=== PATIENT | female | born 1935 | race Caucasian/White ===

== ENCOUNTER 2019-01-10 01:40 | Observation (INO) ==
--- NOTE | 2019-01-10 02:36 | Emergency Department Note ---
Disposition Clinical Impression: Chest pain Qualifiers: Chest pain type: unspecified Qualified Code(s): R07.9 - Chest pain, unspecified Disposition: Admitted As Inpatient Condition: Good Referrals: Chad Torres MD [Primary Care Provider] - Forms: ED Satisfaction Letter, Work/School Release Time of Disposition: 03:36 Chest Pain HPI - General Chief Complaint: ED General Medical Stated Complaint: high bp Time Seen by Provider: 01/10/19 02:00 Source: patient Mode of arrival: EMS Limitations: no limitations Vital Signs Reviewed: Yes Nursing Notes Reviewed: Yes - History of Present Illness HPI Narrative: she states she has had a pressure in her chest, like something sitting on it, intermittantly since noon today. she has felt intermittantly like she could not get her breath. no cough or sputum production, no hemoptysis. no leg pain or history of DVT or PE. No pleuritic pain. she has not history of CAD or chest pain. she feels like the short of breath feeling is likely anxiety. Nothing in particular seems to make the chest pressure come on or go away. She is not having any chest pressure now. it did not radiate from her chest. no nausea, vomiting, diaphoresis today Onset (ago): day(s) (1) Duration: intermittent Pain Location: substernal Severity: mild Severity scale (1-10): 0 Pain Radiation: none Improves with: nothing Worsens with: nothing - Related Data Home Medications Medication Instructions Recorded Confirmed Carvedilol [Coreg] 6.25 mg PO BIDWM 01/12/16 01/10/19 metFORMIN [Glucophage] 500 mg PO BIDWM 01/12/16 01/10/19 Lisinopril [Zestril] 10 mg PO DAILY 01/10/19 01/10/19 Allergies Allergy/AdvReac Type Severity Reaction Status Date / Time aspirin AdvReac Difficulty Verified 01/10/19 03:18 Breathing Constitutional: Denies: fever, chills Eyes: Denies: eye pain, eye discharge ENT ED: Denies: ear pain, throat pain Cardiovascular: Reports: edema. Denies: palpitations, dyspnea on exertion, orthopnea Respiratory: Denies: cough, dyspnea, wheezes Gastrointestinal: Denies: abdominal pain, nausea, vomiting Genitourinary: Denies: urgency, dysuria Musculoskeletal: Denies: back pain, neck pain Integumentary: Denies: rash, abrasion Neurological: Denies: headache, weakness Psychiatric: Reports: anxiety. Denies: depression Endocrine: Denies: fatigue, heat or cold intolerance Hematological/Lymphatic: Denies: easy bleeding, easy bruising Allergic/Immunologic: Denies: facial swelling, urticaria Chest Pain PMH - Past Medical History Medical history: Reports: diabetes, hypertension Psychiatric history: Reports: depression - Social History Smoking Status: Never smoker Alcohol use: Reports: occasionally Drug use: Reports: none Physical Exam - General Limitations: no limitations General appearance: alert, in no apparent distress, other (appears comfortable, obese) - Head Head exam: atraumatic, normocephalic - Eye Eye exam: Present: normal appearance, PERRL, EOMI - ENT ENT exam: normal exam, normal oropharynx, mucous membranes moist - Neck Neck exam: Present: normal inspection, full ROM - Chest Chest inspection: Present: normal inspection, symmetric chest wall rise - Respiratory Respiratory exam: Present: normal lung sounds bilaterally - Cardiovascular Cardiovascular exam: Present: regular rate, normal rhythm, normal heart sounds - Abdominal Exam Abdominal exam: Present: soft, Non-Tender, normal bowel sounds - Extremities Exam Extremities exam: Present: normal inspection, full ROM, pedal edema (1+ bilaterally) - Expanded Lower Extremity Exam Neurovascular/Tendon exam: Present: normal capillary refill, pulse deficit - Back Exam Back exam: Present: normal inspection, full ROM - Neurological Exam Neurological exam: Present: alert, oriented X3 - Psychiatric Psychiatric exam: Present: normal affect, normal mood - Skin Skin exam: Present: warm, dry, normal color Course - Reevaluation(s) Reevaluation #1: [id number]: she says she feels fine at this time. Discussed the possiblilty of an acute coronary syndrome and the insensitivity of the EKG and troponin and the significant risk factors she has. she agrees to stay for observation. Vital Signs Temperature 98.6 F 01/10/19 01:59 Pulse Rate 66 01/10/19 01:59 Respiratory Rate 18 01/10/19 01:59 Blood Pressure 154/78 01/10/19 01:59 O2 Sat by Pulse Oximetry 97 01/10/19 01:59 Temperature 98.6 F 01/10/19 01:59 Pulse Rate 62 01/10/19 03:02 Respiratory Rate 14 01/10/19 03:02 Blood Pressure 132/80 01/10/19 03:02 O2 Sat by Pulse Oximetry 95 01/10/19 03:02 Oxygen Delivery Oxygen Delivery Room Air Chest Pain - Differential Diagnosis Likely: unstable angina pectoris, atypical chest pain, biliary colic (CHF, PE) - Medical Records Medical records reviewed: Yes I reviewed the patient's medical records. - Lab Data Lab results reviewed: Yes I reviewed the patient's lab results. Result diagrams: 01/10/19 02:30 01/10/19 02:30 Lab Results 01/10/19 01/10/19 01/10/19 Range/Units 02:30 02:30 02:30 WBC 5.9 (4.3-11.1) K/mcL RBC 4.11 (3.82-4.97) M/mcL Hgb 11.9 (11.5-15.4) g/dL Hct 36.3 (35.3-44.9) % MCV 88.3 (83.0-100.0) fL MCH 29.0 (28.0-33.3) pg MCHC 32.8 (31.6-35.5) g/dL RDW 15.2 H (11.5-14.5) % Plt Count 274 (140-400) K/mcL MPV 10.0 (9.4-12.4) fL Immature Gran % 0.3 (0-4) % Seg Neutrophils % 58.0 % Lymphocytes % 23.2 % Monocytes % 12.5 % Eosinophils % 5.0 % Basophils % 1.0 % Neutrophils # 3.4 (1.6-8.9) K/mcL Lymphocytes # 1.4 (0.6-4.6) K/mcL Monocytes # 0.7 (0.0-1.3) K/mcL Eosinophils # 0.3 (0.0-0.6) K/mcL Basophils # 0.1 (0.0-0.2) K/mcL PT 11.8 (9.4-12.1) Seconds INR 1.0 APTT 33.0 (26.0-36.0) Seconds Sodium (136-145) mEq/L Potassium (3.5-5.1) mEq/L Chloride (98-107) mEq/L Carbon Dioxide (23-29) mEq/L BUN (8-23) mg/dL Creatinine (0.60-1.20) mg/dL Est GFR ( Amer) (> 60) Est GFR (Non-Af Amer) (> 60) BUN/Creatinine Ratio (6-26) Glucose (70-105) mg/dL Calculated Osmolality (280-300) Calcium (8.6-10.3) mg/dL Total Bilirubin 0.3 (0.3-1.0) mg/dL Direct Bilirubin 0.0 (0.0-0.2) mg/dL Indirect Bilirubin 0.3 (0.0-1.2) mg/dL AST 16 (13-39) Units/L ALT 14 (7-52) Units/L Alkaline Phosphatase 99 (34-104) Units/L Troponin I (< 0.04) ng/mL B-Natriuretic Peptide (Less than 100) pg/mL Serum Total Protein 6.5 (6.4-8.9) g/dL Albumin 3.6 (3.5-5.7) g/dL Globulin 2.9 (2.4-3.5) g/dL Albumin/Globulin Ratio 1.2 (1.1-2.2) 01/10/19 01/10/19 Range/Units 02:30 02:30 WBC (4.3-11.1) K/mcL RBC (3.82-4.97) M/mcL Hgb (11.5-15.4) g/dL Hct (35.3-44.9) % MCV (83.0-100.0) fL MCH (28.0-33.3) pg MCHC (31.6-35.5) g/dL RDW (11.5-14.5) % Plt Count (140-400) K/mcL MPV (9.4-12.4) fL Immature Gran % (0-4) % Seg Neutrophils % % Lymphocytes % % Monocytes % % Eosinophils % % Basophils % % Neutrophils # (1.6-8.9) K/mcL Lymphocytes # (0.6-4.6) K/mcL Monocytes # (0.0-1.3) K/mcL Eosinophils # (0.0-0.6) K/mcL Basophils # (0.0-0.2) K/mcL PT (9.4-12.1) Seconds INR APTT (26.0-36.0) Seconds Sodium 139 (136-145) mEq/L Potassium 4.3 (3.5-5.1) mEq/L Chloride 101 (98-107) mEq/L Carbon Dioxide 31 H (23-29) mEq/L BUN 26 H (8-23) mg/dL Creatinine 1.27 H (0.60-1.20) mg/dL Est GFR ( Amer) 49 L (> 60) Est GFR (Non-Af Amer) 40 L (> 60) BUN/Creatinine Ratio 20 (6-26) Glucose 104 (70-105) mg/dL Calculated Osmolality 293 (280-300) Calcium 9.4 (8.6-10.3) mg/dL Total Bilirubin (0.3-1.0) mg/dL Direct Bilirubin (0.0-0.2) mg/dL Indirect Bilirubin (0.0-1.2) mg/dL AST (13-39) Units/L ALT (7-52) Units/L Alkaline Phosphatase (34-104) Units/L Troponin I < 0.03 (< 0.04) ng/mL B-Natriuretic Peptide 54 (Less than 100) pg/mL Serum Total Protein (6.4-8.9) g/dL Albumin (3.5-5.7) g/dL Globulin (2.4-3.5) g/dL Albumin/Globulin Ratio (1.1-2.2) - EKG Data EKG attestation: Yes I reviewed and interpreted this EKG. EKG shows normal: sinus rhythm (67 bpm), axis (normal), intervals (normal), QRS complexes (normal), ST-T waves (normal) Interpretation: normal EKG (there is baseline artifact but since 12/30/14, the nonspecific changes are less apparent but look the same on the EKG from EMS) Heart Score - Score History: Moderately Suspicious EKG: Normal Age: Greater than 65 Risk Factors: 1-2 risk factors Troponin: Less than normal limit HEART Score Total: 4
[2019-01-10 02:37] LABS: Basophils # 0.1 K/mcL (0.0-0.2); Eosinophils # 0.3 K/mcL (0.0-0.6); Hematocrit 36.3 % (35.3-44.9); Hemoglobin 11.9 g/dL (11.5-15.4); Immature Granulocytes % 0.3 % (0-4); Lymphocytes # 1.4 K/mcL (0.6-4.6); Lymphocytes % 23.2 %; Mean Corpuscular HGB Conc 32.8 g/dL (31.6-35.5); Mean Corpuscular Volume 88.3 fL (83.0-100.0); Monocytes # 0.7 K/mcL (0.0-1.3); Monocytes % 12.5 %; Neutrophils # 3.4 K/mcL (1.6-8.9); Platelet Count 274 K/mcL (140-400); Red Blood Count 4.11 M/mcL (3.82-4.97); Red Cell Distribution Width 15.2 % (11.5-14.5)
[2019-01-10 02:42] LABS: Prothrombin Time 11.8 Seconds (9.4-12.1)
[2019-01-10 02:53] LABS: Albumin 3.6 g/dL (3.5-5.7); Albumin/Globulin Ratio 1.2 (1.1-2.2); Bilirubin,Indirect 0.3 mg/dL (0.0-1.2); Bilirubin,Total 0.3 mg/dL (0.3-1.0); Globulin 2.9 g/dL (2.4-3.5); Total Protein 6.5 g/dL (6.4-8.9); Troponin I < 0.03 ng/mL (< 0.04)
[2019-01-10 02:54] LABS: BUN/Creatinine Ratio 20 (6-26); Blood Urea Nitrogen 26 mg/dL (8-23); Calcium 9.4 mg/dL (8.6-10.3); Carbon Dioxide 31 mEq/L (23-29); Chloride 101 mEq/L (98-107); Glucose 104 mg/dL (70-105); Osmolality,Calculated 293 (280-300); Potassium 4.3 mEq/L (3.5-5.1); Sodium 139 mEq/L (136-145); eGFR For Non-African Americans 40 (> 60)
[2019-01-10] MEDS ORDERED: Naloxone 0.4 MG/ML INJ IVP PRN (04:05)
[2019-01-10] MEDS ORDERED: Ondansetron 4 MG/2 ML VIAL IVP PRN (04:05)
[2019-01-10] MEDS ORDERED: Acetaminophen 325 MG TABLET PO PRN (04:05)
[2019-01-10] MEDS ORDERED: Nitroglycerin 0.4 MG TAB.SUBL SL PRN (04:05)
[2019-01-10] MEDS ORDERED: traMADol 50 MG TABLET PO PRN (04:05)
[2019-01-10] MEDS: *HR* Enoxaparin 30 MG/0.3 ML SYRINGE SQ SCH (06:06)
--- NOTE | 2019-01-10 06:44 | Internal Med History&Physical ---
Date of Encounter: 01/11/19 Time of Encounter: 06:44 Assessment and Plan (1) Chest tightness or pressure Current visit: Yes Status: Acute History of new onset of chest pressure/dyspnea and high risk patient who has obesity, hypertension, diabetes and family history of heart disease. She has not had an acute OH. Her EKG is stable. Troponin so far negative. Continued serial troponins, monitor vitals, etc. I would like for her to undergo nonexercise stress testing prior to discharge to stratify her risk and see whether she needs heart catheterization. Indications for heart catheterization or transfer have been discussed. (2) Hypertension Current visit: Yes Status: Chronic Long-standing history of hypertension. Currently her blood pressure is under good control. Continue the same medication. Qualifiers: Hypertension type: essential hypertension Qualified Code(s): I10 - Essential (primary) hypertension (3) Diabetes Current visit: Yes Status: Chronic Chronic history of diabetes, last glycated hemoglobin showed good control 6.1%. Continue same medication. Follow regarding chronic kidney disease, continues current medication. Qualifiers: Diabetes mellitus type: type 2 Diabetes mellitus assistant terminal manager insulin use: without assistant terminal manager use Diabetes mellitus complication status: without complication Qualified Code(s): E11.9 - Type 2 diabetes mellitus without complications (4) Depression Current visit: Yes Status: Chronic Chronic history of depression, isolation in her home and rarely gets out. She has been to counseling in the past and this has been recommended recently as well. Qualifiers: Depression Type: major depressive disorder Major depression recurrence: recurrent Active/Remission status: in partial remission Qualified Code(s): F33.41 - Major depressive disorder, recurrent, in partial remission (5) Chronic kidney disease Current visit: Yes Status: Acute Patient has a history of chronic kidney disease which is mild. Likely related to her hypertension and diabetes. This has been stable as compared to her previous labs. I told her she should avoid NSAIDs including Aleve that she uses at home sometimes. We will continue monitoring her labs. Qualifiers: Chronic kidney disease stage: stage 3 (moderate) Qualified Code(s): N18.3 - Chronic kidney disease, stage 3 (moderate) Internal Medicine - H&P: HPI Chief complaint: "I developed chest pressure" Admitted From: Emergency Dept Plans for Post Hospital Care: Home History of present illness: Ms. Gabriel is a 83 year old female with history of hypertension, diabetes, depression and other multiple medical problems. She said she was her usual self until about noon yesterday. "I got up, was not very alert, felt "weird", strange and like an "out of body feeling". "My blood pressure was off the chart". She said she was having a "pressure" in her chest and said it was specifically not a pain. It was "on and off" and "could not get enough air in my lungs". She felt a little clammy for short amount of time. No radiation of symptoms into her neck or jaw or back or shoulder or arm. No nausea or vomiting. It bothered her long enough and severe enough that she called the life squad and was brought to the emergency room. She is unclear of the details of what time of the day that occurred. He does remember being in the ER and remembered Dr. Chase's name. She states she has not had any chest pain, just "pressure". She thinks she is having a little bit this morning. In the ER her workup was negative including basic lab work, troponin, EKG, etc. With her known risk factors as outlined above was recommended that she be admitted to observation bed to rule out an acute OH, acceleration of angina, or other etiology for her symptoms. Past Med Surg Social Fam HX - Past Medical History Medical history: diabetes, hypertension Additional medical history: Hemorroids Psychiatric history: depression - Social History Smoking Status: Never smoker Smokeless Tobacco Status: No Alcohol use: occasionally Drug use: none Occupational status: other Current living situation: Home - Independent Activity Level: Independent ambulation Recent Out of Country Travel Within the Last 8 Weeks: No Exposure or Possible Exposure to Illness During Travel: No - Family History Mother Living Status: Age at : 94 Hx Family Cancer: Yes (Cervical cancer/hysterectomy) Father Living Status: Age at : 65 Internal Medicine - H&P: Meds Carvedilol [Coreg] 25 mg PO BID 01/12/16 [History] metFORMIN [Glucophage] 1,000 mg PO BIDWM 01/12/16 [History] Lisinopril/Hydrochlorothiazide [Zestoretic 10-12.5 mg Tablet] 1 each PO DAILY 01/10/19 [History] Allergy/AdvReac Type Severity Reaction Status Date / Time aspirin AdvReac Difficulty Verified 01/10/19 03:18 Breathing - Constitutional Constitutional: no fever(s), no falls, no weakness - EENT Eyes: no loss of vision Ears: no ear pain Nose, mouth and throat: no mouth pain, no sore throat, no throat swelling - Cardiovascular Cardiovascular ROS IM: dyspnea ("It feels like he could not take in enough air into my lungs".), no chest pain, no irregular heart rhythm, no lightheadedness, no palpitations, no syncope - Respiratory Respiratory: no cough, no dyspnea on exertion, no chest congestion - Gastrointestinal Gastrointestinal: no abdominal pain, no constipation, no diarrhea, no vomiting - Genitourinary Genitourinary: no dysuria Menstruation: post menopausal - Musculoskeletal Musculoskeletal ROS IM: back pain (Previously she had low back pain with sciatica down the right lower extremity. She states that is basically gone now.), no muscle weakness - Neurological Neurological ROS: no disequilibrium, no tremor(s), no vertigo - Psychiatric Psychiatric: depression - Constitutional Vitals: Temp Pulse Resp BP Pulse Ox 98.2 F 72 15 136/84 98 01/10/19 06:32 01/10/19 06:32 01/10/19 06:32 01/10/19 06:32 01/10/19 06:32 General appearance: Present: A&O X 3, no acute distress, obese - Head Head exam: Present: atraumatic - ENT ENT exam: Present: normal oropharynx, TM's normal bilaterally - Neck Neck exam general surgery: Absent: lymphadenopathy, tenderness, thyromegaly - Respiratory Respiratory exam: Present: CTAB. Absent: respiratory distress - Cardiovascular Cardiovascular exam: Present: RRR, +S1, +S2 - GI/Abdominal GI/Abdominal exam: Present: soft. Absent: guarding, hepatomegaly, mass, no peritoneal signs - Extremities Exam Extremities exam: Absent: calf tenderness, joint swelling, pedal edema, tenderness Internal Med - H&P Results - Labs CBC & Chem 7: 01/10/19 02:30 01/11/19 07:00 Labs: Short CBC 01/10/19 Range/Units 02:30 WBC 5.9 (4.3-11.1) K/mcL Hgb 11.9 (11.5-15.4) g/dL Hct 36.3 (35.3-44.9) % Plt Count 274 (140-400) K/mcL Neutrophils # 3.4 (1.6-8.9) K/mcL BMP 01/10/19 02:30 Sodium 139 Potassium 4.3 Chloride 101 Carbon Dioxide 31 H BUN 26 H Creatinine 1.27 H Glucose 104 Calcium 9.4 Cardiac Enzymes 01/10/19 Range/Units 02:30 Troponin I < 0.03 (< 0.04) ng/mL Liver Function 01/10/19 Range/Units 02:30 Total Bilirubin 0.3 (0.3-1.0) mg/dL Direct Bilirubin 0.0 (0.0-0.2) mg/dL AST 16 (13-39) Units/L ALT 14 (7-52) Units/L Alkaline Phosphatase 99 (34-104) Units/L Albumin 3.6 (3.5-5.7) g/dL Labs have been reviewed. Troponin negative. History of chronic kidney disease and creatinine 1.27. - EKG Data -: EKG Interpreted by Myself (EKG shows normal sinus rhythm. Nonspecific T-wave change in anterior lead ) - Impressions ITS Impressions Chest X-Ray 01/10/19 02:21 IMPRESSION: No acute findings. D/ / Ke Fritz / Ke Fritz Interpreting Provider: Ke Fritz
[2019-01-10] MEDS ORDERED: *HR* Metformin 500 MG TABLET PO SCH ×2 (08:00)
[2019-01-10] MEDS ORDERED: Gabapentin 300 MG CAPSULE PO SCH (09:00)
--- NOTE | 2019-01-10 21:22 | Electrocardiograph Report ---
[address] [address] Test Date: 2019-01-10 Pat Name: Suzanne Gabriel Department: EDG3 Room: 118 Gender: F Beck Operator: : [id number] Requested By: Ian Chase Order Number: [id number] Reading MD: Paula Elder Measurements Intervals [place] Rate: 67 P: 64 NC: 157 QRS: 10 QRSD: 106 T: 68 QT: 417 QTc: 441 Interpretive Statements Sinus rhythm Electronically Signed On 01-10-2019 21:20:51 EST by Paula Elder
[2019-01-11 07:31] LABS: Calcium 8.7 mg/dL (8.6-10.3); Chol/HDL Ratio 3.5 (0-4.9); Magnesium 1.4 mg/dL (1.6-2.6); Potassium 3.8 mEq/L (3.5-5.1)
[2019-01-11] MEDS ORDERED: Regadenoson 0.4 MG/5 ML SYRINGE IVP ONE (07:56)
[2019-01-11] MEDS: *HR* Enoxaparin 30 MG/0.3 ML SYRINGE SQ SCH (09:54)
--- NOTE | 2019-01-11 11:08 | Discharge Summary ---
- NOTES TO OUTPATIENT PROVIDER Notes to Outpatient Provider: #1. She will return to [facility] for her second half of her nuclear stress test tomorrow morning. #2. I will make a house call for follow-up. Date of Encounter: 01/11/19 Time of Encounter: 10:45 - Discharge Diagnosis (1) Chest tightness or pressure Priority: Primary Status: Acute Comments: Patient was admitted with history of chest pressure on and off for several hours. In the ER she had a negative workup for an acute ME. Her EKG was stable. However with the risk factors of hypertension, diabetes, her age and these new onset of symptoms it was recommended to have a nonexercise stress test to stratify whether she needs further evaluation or not. She had no further cardiac symptoms during the hospital stay. Troponins were negative. Vitals remained stable. EKG was stable. She underwent the first half of her nonexercise stress test ( because of her weight it had to be divided into 2 parts on 2 different days) and the verbal report from Dr. Wilson the senior stereo compiler team lead was that it was negative for obvious ischemic changes. I thought it was safe to send her home and come back the following morning for the second half of the test. Indications as to when to come back to the emergency room in the meantime have been discussed. (2) Hypertension Priority: Secondary Status: Chronic Comments: Patient has a history of chronic hypertension. During this hospital stay her pressures have been under adequate control. Lab work unremarkable except for chronic kidney disease which has been stable. We will follow up as an outpatient. Qualifiers: Hypertension type: essential hypertension Qualified Code(s): I10 - Essential (primary) hypertension (3) Diabetes Priority: Secondary Status: Chronic Comments: Patient has a chronic history of diabetes. Surprisingly, her last glycohemoglobin was under good control. Continue same medication. No new intervention during this hospital stay. Qualifiers: Diabetes mellitus type: type 2 Diabetes mellitus meterman insulin use: without meterman use Diabetes mellitus complication status: without complication Qualified Code(s): E11.9 - Type 2 diabetes mellitus without complications (4) Depression Priority: Secondary Status: Chronic Qualifiers: Depression Type: major depressive disorder Major depression recurrence: recurrent Active/Remission status: in partial remission Qualified Code(s): F33.41 - Major depressive disorder, recurrent, in partial remission (5) Chronic kidney disease Priority: Secondary Status: Acute Comments: History of chronic kidney disease and her creatinine has remained stable. I talked to her about avoiding NSAIDs. Apparently at home she will take Aleve for pain. Avoiding nephrotoxic medications again discussed. Follow-up lab work will be arranged as an outpatient. Qualifiers: Chronic kidney disease stage: stage 3 (moderate) Qualified Code(s): N18.3 - Chronic kidney disease, stage 3 (moderate) Hospital course: Ms. Gabriel is a 83 year old female with known history of hypertension and diabetes and obesity was admitted in observation bed with history of "chest pressure" which was a new symptom for her. Acute ME was ruled out. She underwent first part of a nonexercise cardiac stress test which reportedly was "negative". She will return tomorrow for the second half of the test. See the diagnoses above. - Time Spent with Patient Total time spent providing and/or coordinating discharge services: - Discharge Medications Prescriptions: New Acetaminophen [Tylenol] 650 mg PO Q6H PRN tablet PRN Reason: Mild Pain/Fever Carvedilol [Coreg] 25 mg PO BIDWM tablet Continue metFORMIN [Glucophage] 1,000 mg PO BIDWM Discontinued Carvedilol [Coreg] 25 mg PO BID Lisinopril/Hydrochlorothiazide [Zestoretic 10-12.5 mg Tablet] 1 each PO DAILY Home Medications: metFORMIN [Glucophage] 1,000 mg PO BIDWM 01/12/16 [History] Acetaminophen [Tylenol] 650 mg PO Q6H PRN tablet 01/11/19 [Rx] Carvedilol [Coreg] 25 mg PO BIDWM tablet 01/11/19 [Rx] Allergies/Adverse Reactions: Allergy/AdvReac Type Severity Reaction Status Date / Time aspirin AdvReac Difficulty Verified 01/10/19 03:18 Breathing Date of admission: 01/10/19 03:39 Primary care physician: Chad Torres MD Discharging clinician: Chad Torres Anticipated date of discharge: 01/11/19 - Constitutional Vitals: Temp Pulse Resp BP Pulse Ox 98.2 F 65 18 138/85 96 01/11/19 07:42 01/11/19 07:42 01/11/19 07:42 01/11/19 07:42 01/11/19 07:42 General appearance: Present: A&O X 3, no acute distress, obese - Respiratory Respiratory exam: Present: CTAB - Cardiovascular Cardiovascular exam: Present: RRR, +S1, +S2 - Extremities Exam Extremities exam: Absent: calf tenderness, pedal edema - Patient Status Disposition: Home, Self-Care Condition: Good Functional capacity at discharge: uses cane/walker Overall status at discharge: patient is back to baseline - Discharge Instructions Instructions: Chest Pain (DC), Chronic Hypertension (DC) Follow Up With: Chad Torres MD [Primary Care Provider] - (Dr. Torres will make a house call.) Additional Instructions: Arrive at nuclear medicine before 6:30. -Nothing to eat or drink after midnight until testing is complete. -No caffene, chocolate, or decaf drinks after 6pm. - Diet and Activity Activity: ambulate only with your walker Diet: advance to your usual diet, diabetic diet
[2019-01-11 11:16] VITALS: BP 115/76
== END 2019-01-11 14:20 | disposition home or self-care (01) ==
LOC: INPGRE 01:40 → EMEROOGRE 01:40 → INPGRE 03:49
PROVIDERS: ADMIT Family Medicine; ATTEND Family Medicine

== ENCOUNTER 2019-10-04 06:47 | Inpatient (IN) ==
[2019-10-04] MEDS ORDERED: *HR* HYDROcodone/Acet 5/325 mg TABLET PO PRN (10:45)
[2019-10-04] MEDS ORDERED: Naloxone 0.4 MG/ML INJ IVP PRN (10:45)
[2019-10-04 14:10] LABS: Basophils % 0.3 %; Eosinophils % 0.1 %; Hematocrit 39.7 % (35.3-44.9); Hemoglobin 13.2 g/dL (11.5-15.4); Immature Granulocytes % 0.7 % (0-4); Lymphocytes % 6.9 %; Mean Corpuscular HGB Conc 33.2 g/dL (31.6-35.5); Mean Corpuscular Hemoglobin 28.7 pg (28.0-33.3); Mean Corpuscular Volume 86.3 fL (83.0-100.0); Mean Platelet Volume 11.6 fL (9.4-12.4); Monocytes # 0.6 K/mcL (0.0-1.3); Monocytes % 4.4 %; Neutrophils # 12.1 K/mcL (1.6-8.9); Platelet Count 248 K/mcL (140-400); Red Cell Distribution Width 15.3 % (11.5-14.5); Segmented Neutrophils % 87.6 %; White Blood Count 13.8 K/mcL (4.3-11.1)
[2019-10-04 14:22] LABS: Calcium 9.3 mg/dL (8.6-10.3); Potassium 3.9 mEq/L (3.5-5.1)
[2019-10-04 16:56] LABS: Bilirubin,Urine Small (Negative); Blood,Urine Trace-intact (Negative); Clarity,Urine Clear (Clear); Color,Urine Yellow (Yellow); Glucose,Urine (UA) Normal (Normal); Ketones,Urine 40 mg/dL (Negative); Leukocyte Esterase,Urine Small (Negative); Nitrite,Urine Positive (Negative); Protein,Urine 100 mg/dL (Neg-Trace); Specific Gravity,Urine 1.025 (1.010-1.025); Urobilinogen,Urine Normal (Normal)
[2019-10-04 17:00] LABS: Bacteria,Urine Moderate per hpf (None-Few); RBC,Urine 0-3 per hpf (0-3); Squamous Epithelial Cell,Urine Few per lpf (None-Few); WBC,Urine 15-30 per hpf (0-3)
[2019-10-04] MEDS: *HR* Metformin 500 MG TABLET PO SCH (17:19)
[2019-10-04] MEDS: carvediloL 25 MG TABLET PO SCH (17:19)
[2019-10-04] MEDS ORDERED: 0.9 % Sodium Chloride 500 ML IV ONE (23:05)
[2019-10-05] MEDS: 0.9 % Sodium Chloride 1,000 ML IVC SCH ×3 (00:09→16:47)
[2019-10-05 05:15] LABS: Basophils % 0.4 %; Eosinophils # 0.1 K/mcL (0.0-0.6); Eosinophils % 0.7 %; Hematocrit 31.1 % (35.3-44.9); Hemoglobin 10.6 g/dL (11.5-15.4); Immature Granulocytes % 0.6 % (0-4); Lymphocytes # 1.1 K/mcL (0.6-4.6); Mean Corpuscular HGB Conc 34.1 g/dL (31.6-35.5); Mean Corpuscular Volume 85.2 fL (83.0-100.0); Mean Platelet Volume 11.3 fL (9.4-12.4); Monocytes # 0.8 K/mcL (0.0-1.3); Monocytes % 7.8 %; Platelet Count 190 K/mcL (140-400); Red Blood Count 3.65 M/mcL (3.82-4.97); Segmented Neutrophils % 79.5 %
[2019-10-05 05:31] LABS: Calcium 8.2 mg/dL (8.6-10.3); Potassium 3.2 mEq/L (3.5-5.1)
[2019-10-05] MEDS: Sulfamethoxazole/Trimeth DS 1 EACH TABLET PO SCH ×2 (09:55→20:09)
[2019-10-05] MEDS: carvediloL 25 MG TABLET PO SCH ×2 (09:55→16:49)
[2019-10-05] MEDS: Cholecalciferol (D-3) 1,000 UNIT (25MCG) TABLET PO SCH (09:55)
[2019-10-05] MEDS: *HR* Enoxaparin 40 MG/0.4 ML SYRINGE SQ SCH (09:55)
[2019-10-05] MEDS: FLUoxetine 20 MG CAPSULE PO SCH (09:56)
[2019-10-05] MEDS: *HR* Metformin 500 MG TABLET PO SCH ×2 (09:56→16:49)
[2019-10-05] MEDS: Acetaminophen 325 MG TABLET PO PRN (14:55)
[2019-10-05] MEDS: Mag Hydrox/Al Hydrox/Simeth 30 ML UDC PO PRN (20:16)
[2019-10-06 06:16] LABS: Basophils % 0.6 %; Eosinophils # 0.1 K/mcL (0.0-0.6); Hematocrit 29.3 % (35.3-44.9); Hemoglobin 9.9 g/dL (11.5-15.4); Immature Granulocytes % 1.2 % (0-4); Lymphocytes # 0.7 K/mcL (0.6-4.6); Lymphocytes % 11.1 %; Mean Corpuscular HGB Conc 33.8 g/dL (31.6-35.5); Mean Corpuscular Hemoglobin 28.8 pg (28.0-33.3); Mean Corpuscular Volume 85.2 fL (83.0-100.0); Mean Platelet Volume 11.4 fL (9.4-12.4); Monocytes # 0.5 K/mcL (0.0-1.3); Neutrophils # 5.1 K/mcL (1.6-8.9); Platelet Count 187 K/mcL (140-400); Red Blood Count 3.44 M/mcL (3.82-4.97); Segmented Neutrophils % 77.1 %; White Blood Count 6.6 K/mcL (4.3-11.1)
[2019-10-06 06:52] LABS: Calcium 7.9 mg/dL (8.6-10.3); Potassium 3.3 mEq/L (3.5-5.1)
[2019-10-06] MEDS: *HR* Enoxaparin 40 MG/0.4 ML SYRINGE SQ SCH (08:41)
[2019-10-06] MEDS: Sulfamethoxazole/Trimeth DS 1 EACH TABLET PO SCH ×2 (08:41→22:21)
[2019-10-06] MEDS: Cholecalciferol (D-3) 1,000 UNIT (25MCG) TABLET PO SCH (08:42)
[2019-10-06] MEDS: amLODIPine 5 MG TABLET PO SCH (08:42)
[2019-10-06] MEDS: FLUoxetine 20 MG CAPSULE PO SCH (08:42)
[2019-10-06] MEDS: carvediloL 25 MG TABLET PO SCH ×2 (08:42→18:22)
[2019-10-06] MEDS: 0.9 % Sodium Chloride 1,000 ML IVC SCH ×2 (08:45→21:45)
[2019-10-06] MEDS: Acetaminophen 325 MG TABLET PO PRN (22:21)
[2019-10-07 05:05] LABS: Basophils % 0.7 %; Eosinophils # 0.4 K/mcL (0.0-0.6); Eosinophils % 8.3 %; Hematocrit 29.5 % (35.3-44.9); Hemoglobin 9.9 g/dL (11.5-15.4); Immature Granulocytes % 0.9 % (0-4); Lymphocytes # 0.6 K/mcL (0.6-4.6); Lymphocytes % 13.9 %; Mean Corpuscular HGB Conc 33.6 g/dL (31.6-35.5); Mean Corpuscular Hemoglobin 28.9 pg (28.0-33.3); Mean Platelet Volume 11.5 fL (9.4-12.4); Monocytes # 0.3 K/mcL (0.0-1.3); Neutrophils # 3.1 K/mcL (1.6-8.9); Platelet Count 202 K/mcL (140-400); Red Blood Count 3.43 M/mcL (3.82-4.97); Red Cell Distribution Width 15.4 % (11.5-14.5); Segmented Neutrophils % 69.2 %; White Blood Count 4.5 K/mcL (4.3-11.1)
[2019-10-07 05:23] LABS: Calcium 7.8 mg/dL (8.6-10.3); Potassium 3.7 mEq/L (3.5-5.1)
[2019-10-07] MEDS: *HR* Enoxaparin 40 MG/0.4 ML SYRINGE SQ SCH (08:38)
[2019-10-07] MEDS: FLUoxetine 20 MG CAPSULE PO SCH (08:38)
[2019-10-07] MEDS: Sulfamethoxazole/Trimeth DS 1 EACH TABLET PO SCH (08:39)
[2019-10-07] MEDS: carvediloL 25 MG TABLET PO SCH ×2 (08:39→17:03)
[2019-10-07] MEDS: amLODIPine 5 MG TABLET PO SCH (08:39)
[2019-10-07] MEDS: Cholecalciferol (D-3) 1,000 UNIT (25MCG) TABLET PO SCH (08:39)
[2019-10-07] MEDS: 0.9 % Sodium Chloride 1,000 ML IVC SCH ×4 (08:42→21:30)
[2019-10-07 16:04] LABS: Estimated Average Glucose 143 mg/dl
[2019-10-07] MEDS: Acetaminophen 325 MG TABLET PO PRN (21:28)
[2019-10-07] MEDS: cephALEXin 500 MG CAPSULE PO SCH (21:28)
[2019-10-08] MEDS: 0.9 % Sodium Chloride 1,000 ML IVC SCH (07:45)
[2019-10-08] MEDS: *HR* Enoxaparin 40 MG/0.4 ML SYRINGE SQ SCH (07:53)
[2019-10-08] MEDS: FLUoxetine 20 MG CAPSULE PO SCH (07:53)
[2019-10-08] MEDS: amLODIPine 5 MG TABLET PO SCH (07:54)
[2019-10-08] MEDS: cephALEXin 500 MG CAPSULE PO SCH ×2 (07:54→20:25)
[2019-10-08] MEDS: carvediloL 25 MG TABLET PO SCH ×2 (07:54→17:02)
[2019-10-08] MEDS: Cholecalciferol (D-3) 1,000 UNIT (25MCG) TABLET PO SCH (07:54)
[2019-10-08] MEDS: Acetaminophen 325 MG TABLET PO PRN (08:01)
[2019-10-08 16:34] LABS: Calcium 8.5 mg/dL (8.6-10.3); Potassium 4.9 mEq/L (3.5-5.1)
[2019-10-09] MEDS: FLUoxetine 20 MG CAPSULE PO SCH (09:51)
[2019-10-09] MEDS: carvediloL 25 MG TABLET PO SCH ×2 (09:52→17:05)
[2019-10-09] MEDS: cephALEXin 500 MG CAPSULE PO SCH ×2 (09:52→20:15)
[2019-10-09] MEDS: *HR* Enoxaparin 40 MG/0.4 ML SYRINGE SQ SCH (09:52)
[2019-10-09] MEDS: amLODIPine 5 MG TABLET PO SCH (09:52)
[2019-10-09] MEDS: Cholecalciferol (D-3) 1,000 UNIT (25MCG) TABLET PO SCH (09:52)
[2019-10-09] MEDS: Mag Hydrox/Al Hydrox/Simeth 30 ML UDC PO PRN ×2 (09:55→20:15)
[2019-10-10] MEDS: carvediloL 25 MG TABLET PO SCH (09:23)
[2019-10-10] MEDS: Cholecalciferol (D-3) 1,000 UNIT (25MCG) TABLET PO SCH (09:23)
[2019-10-10] MEDS: amLODIPine 5 MG TABLET PO SCH (09:24)
[2019-10-10] MEDS: cephALEXin 500 MG CAPSULE PO SCH (09:24)
[2019-10-10] MEDS: FLUoxetine 20 MG CAPSULE PO SCH (09:24)
[2019-10-10] MEDS: *HR* Enoxaparin 40 MG/0.4 ML SYRINGE SQ SCH (09:24)
[2019-10-10 15:39] VITALS: BP 108/66
== END 2019-10-10 18:32 | DRG 563 ==
LOC: EMEROOGRE 06:47 → INPGRE 06:47
PROVIDERS: ADMIT Family Medicine; ATTEND Family Medicine